=== PATIENT | male | born 1965 | race Caucasian/White ===

== ENCOUNTER 2024-04-03 13:20 | Emergency (ER) | payer OTHER, SELFPAY ==
[2024-04-03 13:36] VITALS: BP 176/87; PULSE 65; RESP 18; TEMP 36.6; O2SAT 99; BMI 22.4
--- NOTE | 2024-04-03 14:08 | ED_ITS ---
HPI - General Adult General Date Seen: 04/03/24 Chief complaint: Hip Injury/Pain Stated complaint: back pain Time Seen by Provider: 04/03/24 13:35 History of Present Illness HPI narrative: 58-year-old gentleman presenting to the ER today for hip injury and back pain. He is generally healthy except for he has a history of osteoarthritis and has had a previous right hip replacement done about [address] Levin. He says his hip was ?[id number]-rc-[id number]. ? He also says that he gets occasional bouts of ?sciatica? the tend to happen about once every fall or winter. He has never had any low back surgeries. 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 He works long hours at work. His has also been recovering from a recent surgery. She apparently had a foot surgery with hardware placement in January which subsequently developed a staph infection so she now had hardware removed and she is on IV antibiotics at home. She is able to ambulate herself but he does do a lot of extra household tasks to support her. He does not have to lift her or help her move around the house. Beginning last week, on around March 28 he started having pain affecting his right side of his lower lumbar spine. He does not recall any specific injury. No fall or slip on the ice. The pain tends to be worse when he flexes at the hip and bends his body into his an L shape and is better when he lays down flat and stretches out. Along with the pain which is now getting better for the past couple of days he notes a little bit of numbness affecting the lateral side of his right hip and buttock. The numbness does not radiate down his leg to his thigh or calf or foot. No pain or numbness radiating down his leg at all. No weakness in his leg. No left-sided symptoms. He been having pain all week long but finally started taking ibuprofen on Thursday. He notes that he has been taking about 600 mg every 4 hours. Beginning about , before he started the ibuprofen, he has also developed just poor appetite. He says food just does not smell good to him. He is not nauseous. No vomiting. No abdominal pain. He is not having any diarrhea and in fact had a normal formed brown bowel movement. He is not sure why he is still putting because he has not eaten since Thursday. Related Data Home Medications ?Medication ?Instructions ?Recorded ?Confirmed glucosamine sulfate 500 mg tablet 500 mg PO QDAY 03/29/24 03/29/24 (Cidatrine (glucosamine)) omega 5-duv-oky-fish oil 300 1 cap PO QDAY 03/29/24 03/29/24 mg-1,000 mg capsule (Fish Oil) Allergies Allergy/AdvReac Type Severity Reaction Status Date / Time No Known Drug Allergies Allergy Verified 04/03/24 13:35 [facility] Social History Smoking Status: Never smoker Do you use any of these nicotine containing products: None Second hand tobacco smoke exposure: No How often do you have a drink containing alcohol: 2-4 times a month How many standard drinks containing alcohol do you have on a typical day: 1 or 2 How often do you have six or more drinks on one occasion: Never AUDIT-C Alcohol total score: 2 Non-prescribed substance use: denies use service: No Exam Narrative: Exam Narrative: Constitutional: Appears well-developed and well-nourished. Alert. Conversant, and speaks very rapidly and jumps quickly from topic to topic. He gives very detailed long when descriptions of previous events, even to surgery from years a go. Non toxic. HENT: Head: Atraumatic. Nose: Nose normal. Mouth/Throat: Oral mucosa is clear and moist. no trismus. Pharynx normal. Tonsils symmetric. No tonsillar enlargement, erythema, or exudate. Eyes: Conjunctivae normal. EOM normal. Pupils equal, round, and reactive to light. No scleral icterus. Neck: Normal range of motion. Neck supple. No tracheal deviation present. Cardiovascular: Normal rate, regular rhythm. No gallop. No friction rub. No murmur heard. Symmetric radial artery pulses Pulmonary/Chest: Effort normal. No stridor. No respiratory distress. No wheezes. No rales. No rhonchi . No tenderness. Abdominal: Soft. Bowel sounds normal. No distension. No mass. No tenderness. No rebound. No guarding. No CVA tenderness Musculoskeletal: He is able to sit up/rollover for back exam. Normal inspection. No midline tenderness of the thoracic or lumbar spine. No CVA tenderness. No bruising. No redness. No rash. He is not having any tenderness at all this point but is endorsing an area of numbness on his right lateral hip. He is able to his viejas 8 with his thumb and fingers and extends from the right buttock up toward the anterior superior iliac spine on the right side and down toward the greater trochanter. RUE: Normal range of motion. No tenderness. No deformity LUE: Normal range of motion. No tenderness. No deformity RLE: Normal range of motion. No edema. No tenderness. No deformity LLE: Normal range of motion. No edema. No tenderness. No deformity Neurological: Alert and oriented to person, place, and time. Normal strength. CN II-VII intact. No sensory deficit. GCS eye subscore is 4. GCS verbal subscore is 5. GCS motor subscore is 6. Normal coordination Sensory: Normal light touch sensation bilaterally on the anteromedial thigh (L3), medial malleolus (L4), dorsal first web space (L5), lateral malleolus (S1). Strength: 5/5 strength hip flexors (L3) on the rig ht and left 5/5 strength in the quadriceps (L4) on t he right and left 5/5 strength in the tibialis anterior 5/5 strength in the EHL (L5) on the righ t and left 5/5 strength in the gastrocnemius (S1) o n the right and left 5/5 strength in the hamstring on the rig ht and left Negative straight leg raise bilaterally. Skin: Skin is warm and dry. No rash noted. No pallor. Normal capillary refill. Psychiatric: Normal mood. Normal affect. Const: Vital Signs, click to edit/add: Vital Signs - 24 hr 04/03/24 13:36 Temperature 98 F Pulse Rate [Pulse Oximeter] 65 Respiratory Rate 18 Blood Pressure [Le ft Upper Arm] 176/87 H Pulse Oximetry 99 Oxygen Delivery Me thod Room Air Course Vital Signs Vital signs: Initial Vital Signs Temperature 98 F 04/03/24 13:36 Temperature Source Temporal Artery Scan 04/03/24 13:36 Pulse Rate 65 04/03/24 13:36 Pulse Rhythm Regular 04/03/24 13:36 Respiratory Rate 18 04/03/24 13:36 Blood Pressure 176/87 H 04/03/24 13:36 Blood Pressure Mean 116 H 04/03/24 13:36 Blood Pressure Position High-Fowlers 04/03/24 13:36 Pulse Oximetry 99 04/03/24 13:36 Oxygen Delivery Method Room Air 04/03/24 13:36 Vital Signs Temperature 98 F 04/03/24 13:36 Pulse Rate 65 04/03/24 13:36 Respiratory Rate 18 04/03/24 13:36 Blood Pressure 176/87 H 04/03/24 13:36 Pulse Oximetry 99 04/03/24 13:36 Oxygen Delivery Method Room Air 04/03/24 13:36 Temperature 98 F 04/03/24 13:36 Pulse Rate 60 04/03/24 17:15 Respiratory Rate 18 04/03/24 13:36 Blood Pressure 136/99 H 04/03/24 17:01 Pulse Oximetry 98 04/03/24 17:15 Oxygen Delivery Method Room Air 04/03/24 13:36 Medical Decision Making MDM Narrative Medical decision making narrative: This patient presented with an episode of right-sided lower back pain that began several days ago which is now still present but improving and associated with a focal area of numbness on the right lateral hip. In addition to this he is also concerned because he has had anorexia without nausea or vomiting and without abdominal pain beginning a few days ago. Broad differential considered. In terms of his low back pain, The patient did not sustain any trauma, therefore x-rays are not necessary due to the low likelihood of fracture or subluxation. The patient has not had a fever, saddle/perineal anesthesia, bilateral foot numbness, or bowel or bladder dysfunction. There is no clinical evidence of cauda equina syndrome, discitis, spinal/epidural space hematoma or epidural abscess. The neurological exam is normal in his legs, but with a focal area of numbness on the right hip, consider a possible lumbar radiculopathy, possibly affecting the L1 dermatome. MRI not available here in the ER on the weekend. At this point no immediate surgical emergency. Patient will need close outpatient follow-up with primary care to consider possible MRI. Patient declines any pain meds for his back here in the ER. He also notes anorexia and poor appetite for the past few days. Differential for this is broad. He is not nauseous, vomiting or having diarrhea. He has not have a abdominal pain or tenderness. Laboratory workup shows normal white count. Hemoglobin 13.2. LFTs and lipase are normal. No evidence for any cholecystitis. Urinalysis negative for infection. CT scan is obtained with to evaluate for possible intra-abdominal pathology such as gastroenteritis, obstruction, colitis, diverticulitis, appendicitis causing his anorexia. CT shows no acute surgical pathology. It does show nonspecific fluid in the small bowel, possibly enteritis. Also possible constipation. The patient will be discharged with pain medications to use as directed. Ice or heat to the back and stretching exercises. No heavy lifting, bending or twisting. Return if increasing pain, numbness, weakness, or bowel or bladder dysfunction. The patient was advised to schedule follow-up with their primary doctor within 2-3 days to re-assess symptoms. Return precautions reviewed and questions answered. Lab Data Labs: Lab Results 04/03/24 Range/Units 14:50 WBC 5.39 (4.50-11.00) K/uL RBC 4.55 (4.30-5.90) m/uL Hgb 13.2 L (13.5-17.5) gm/dL Hct 39.7 (37.0-53.0) % MCV 87 (80-100) fL MCH 29 (26-34) pg MCHC 33 (32-36) gm/dL RDW Coeff of Lucia 12.7 (11.5-15.5) % Plt Count 199 (140-440) K/uL Neut % (Auto) 64.5 (42.0-72.0) % Lymph % (Auto) 25.4 (20-44) % Starr % (Auto) 8.0 (0.0-11.0) % Eos % (Auto) 0.7 (0.0-7.0) % Baso % (Auto) 0.7 (0.0-3.0) % Neut # (Auto) 3.47 (1.7-7.0) K/uL Lymph # (Auto) 1.37 (0.90-2.90) K/uL Starr # (Auto) 0.40 (0.00-0.90) K/UL Eos # (Auto) 0.04 (0.00-0.50) K/uL Baso # (Auto) 0.04 (0.00-0.30) K/uL Abs Immat Gran (auto) 0.04 (0.00-0.30) K/uL Imm/Tot Granulo (auto) 0.7 % Sodium 136 (135-149) mmol/L Potassium 3.7 (3.6-5.1) mmol/L Chloride 105 (96-114) mmol/L Carbon Dioxide 26 (20-32) mmol/L Anion Gap 5 L (7-15) mEq/L BUN 15 (7-30) mg/dL Creatinine 0.8 (0.5-1.5) mg/dL Estimated Creat Clear 101.96 Estimated GFR 103 ml/min Glucose 89 (60-115) mg/dL Calcium 8.8 (8.4-10.6) mg/dL Total Bilirubin 0.5 (0.1-1.5) mg/dL AST 18 (12-35) U/L ALT 16 (4-50) U/L Alkaline Phosphatase 53 (40-150) U/L Total Protein 6.2 (6.0-8.3) g/dL Albumin 3.9 (3.3-5.0) g/dL Lipase 86 (23-300) U/L Urine Color Yellow (Yellow) Urine Appearance Clear (Clear) Urine pH 6.0 (5.0-8.5) Ur Specific [place] 1.025 (1.000-1.030) Urine Protein Negative (Negative) Urine Glucose (UA) Negative (Negative) Urine Ketones 1+ A (Negative) Urine Blood Negative (Negative) Urine Nitrite Negative (Negative) Urine Bilirubin Negative (Negative) Urine Urobilinogen 0.2 (0.2-1.0) Ur Leukocyte Esterase Negative (Negative) Urine RBC 0-2 (0-2) Urine WBC 2-5 (0-5) Ur Squamous Epith Cells None (None-Few) Urine Bacteria None (None) Imaging Data CT scan - abdomen: Attestation: I have reviewed the pertinent imaging results. Radiologist's impression: Impression: 1. Minimal fluid seen within the central small bowel. Findings could represent mild enteritis changes. Moderate stool seen throughout the colon with distal colonic diverticulosis. 2. Normal appendix. Postoperative changes of the right hip status post right hip arthroplasty without evidence of displaced fracture or hardware failure. Discharge Plan Discharge Clinical Impression: Low back pain, Paresthesia Patient Disposition: Home, Self-Care Condition: Stable Instructions: Acute Low Back Pain (ED), Paresthesia (ED) Additional Instructions: As we discussed, I suspect that your low back pain is probably a muscle spasm on the right side of your lumbar paraspinous muscles. The numbness in your right hip might be due to a pinched nerve from a bulging disc in your low back (possibly lumbar 1 nerve root). Please follow-up with your regular doctor within 1-2 days for a recheck. If necessary, your regular doctor can order an MRI of your low back or your hip for further evaluation. To treat your pain you can use Tylenol 1000 mg every 6 hours or ibuprofen 600 mg every 6 hours. Use the prescription muscle relaxer, Flexeril, as needed for muscle spasm. Be careful Flexeril because it can cause dizziness, drowsiness, and can be addictive. Do not drive or operate machinery for 4 hours after taking Flexeril. Please come back to the ER right away if you have worsening symptoms, new numbness or weakness in your leg, trouble with bowel or bladder function, high fever, or any problems. Prescriptions: No Action glucosamine sulfate [Cidatrine (glucosamine)] 500 mg tablet 500 mg PO QDAY Rx Instructions: administer with a meal omega 6-zvf-yiz-fish oil [Fish Oil] 300-1,000 mg capsule 1 cap PO QDAY Follow Up/Referrals: Viktor Chinchilla MD [Primary Care Provider] - Stand Alone Forms: MyHealth Info Instructions
--- NOTE | 2024-04-03 14:34 | CRLHL7_ITS ---
For Patients: As a result of the Century Cures Act, medical imaging exams and procedure reports are released immediately into your electronic medical record. You may view this report before your referring provider. If you have questions, please contact your health care provider. Indication: Anorexia, weight loss, right flank pain and right hip numbness Technique: Volumetric multidetector CT images of the abdomen and pelvis were obtained after the administration of intravenous contrast. 78 cc Isovue 370 low osmolar intravenous contrast Comparison: None available. Findings: The lung bases are clear. Cystic changes of the liver are appreciated otherwise, no evidence of focal abnormality. The portal vein is patent. The gallbladder is unremarkable without evidence of radiopaque calculus. There is no significant common biliary ductal dilatation or abrupt cut off. The spleen is normal in enhancement and size. The stomach and duodenum are grossly unremarkable. The pancreas is normal in enhancement without significant atrophy. The adrenal glands are unremarkable. The kidneys demonstrate preserved corticomedullary differentiation without evidence of obstructive uropathy. There is moderate stool seen throughout the colon with distal colonic diverticulosis. There is minimal fluid within the central small bowel. The appendix is unremarkable. There is no significant mesenteric, retroperitoneal, or pelvic sidewall lymph nodes. The aorta is nonaneurysmal. There is no significant atherosclerotic disease appreciated. Evaluation of the central pelvis is mildly limited due to beam hardening artifact from right hip arthroplasty. Right hip arthroplasty is grossly intact. There is no free fluid or free air. The anterior abdominal wall is intact without significant hernias. The lumbar vertebral body heights are grossly maintained with moderate multilevel degenerative disc disease. There is minimal anterolisthesis of L5 on S1. 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 Impression: 1. Minimal fluid seen within the central small bowel. Findings could represent mild enteritis changes. Moderate stool seen throughout the colon with distal colonic diverticulosis. 2. Normal appendix. Postoperative changes of the right hip status post right hip arthroplasty without evidence of displaced fracture or hardware failure. Please note that all CT scans at this facility use dose modulation, iterative reconstruction, and/or weight-based dosing when appropriate to reduce radiation dose to as low as reasonably achievable. Dictated by Fantasma Fatima MD @ 04/03/2024 4:53:20 PM (Electronically Signed)
[2024-04-03 14:57] LABS: Appearance Urine Clear (Clear); Basophils Absolute Auto 0.04 K/uL (0.00-0.30); Basophils Percent Auto 0.7 % (0.0-3.0); Bilirubin Urine Negative (Negative); Blood Urine Negative (Negative); Color Urine Yellow (Yellow); Eosinophils Absolute Auto 0.04 K/uL (0.00-0.50); Eosinophils Percent Auto 0.7 % (0.0-7.0); Glucose Urine Negative (Negative); Hematocrit 39.7 % (37.0-53.0); Hemoglobin* 13.2 gm/dL (13.5-17.5); Immature Granulocytes Abs Auto 0.04 K/uL (0.00-0.30); Immature Granulocytes Pct Auto 0.7 %; Ketones Urine 1+ (Negative); Leukocyte Esterase Urine Negative (Negative); Lymphocytes Absolute Auto 1.37 K/uL (0.90-2.90); Lymphocytes Percent Auto 25.4 % (20-44); Mean Corpuscular HGB Conc 33 gm/dL (32-36); Mean Corpuscular Hemoglobin 29 pg (26-34); Mean Corpuscular Volume 87 fL (80-100); Neutrophils Absolute Auto 3.47 K/uL (1.7-7.0); Neutrophils Percent Auto 64.5 % (42.0-72.0); Nitrite Urine Negative (Negative); Platelet Count* 199 K/uL (140-440); Protein Urine Negative (Negative); RDW Coefficient of Variation % 12.7 % (11.5-15.5); Red Blood Count 4.55 m/uL (4.30-5.90); Specific Gravity Urine 1.025 (1.000-1.030); Urobilinogen Urine 0.2 (0.2-1.0); White Blood Count* 5.39 K/uL (4.50-11.00)
[2024-04-03 15:02] LABS: Slide Review Reflex No
[2024-04-03 15:09] LABS: Albumin* 3.9 g/dL (3.3-5.0); Chloride* 105 mmol/L (96-114)
[2024-04-03 15:10] LABS: Potassium* 3.7 mmol/L (3.6-5.1); Sodium* 136 mmol/L (135-149)
[2024-04-03 15:12] LABS: Alkaline Phosphatase* 53 U/L (40-150); Anion Gap 5 mEq/L (7-15); Aspartate Amino Transferase* 18 U/L (12-35); Bilirubin Total* 0.5 mg/dL (0.1-1.5); Blood Urea Nitrogen* 15 mg/dL (7-30); Carbon Dioxide* 26 mmol/L (20-32); Creatinine* 0.8 mg/dL (0.5-1.5); Est. Creatinine Clearance* 101.96; Estimated Glomerular Filt Rate 103 ml/min; Total Protein* 6.2 g/dL (6.0-8.3)
[2024-04-03 15:13] LABS: Alanine Aminotransferase* 16 U/L (4-50); Calcium* 8.8 mg/dL (8.4-10.6); Glucose* 89 mg/dL (60-115); Lipase* 86 U/L (23-300)
[2024-04-03 15:15] LABS: RBC Urine 0-2 (0-2)
[2024-04-03 16:39] VITALS: PULSE 58; O2SAT 100
[2024-04-03 16:45] VITALS: PULSE 61; O2SAT 99
[2024-04-03 17:00] VITALS: PULSE 57; O2SAT 98
[2024-04-03 17:01] VITALS: BP 136/99; PULSE 75; O2SAT 99
[2024-04-03 17:15] VITALS: PULSE 60; O2SAT 98
== END 2024-04-03 17:46 | disposition home or self-care (01) ==
PROVIDERS: Emergency Provider Emergency Medicine; PCP Family Medicine
DX: M54.50 Low back pain, unspecified (principal); R20.2 Paresthesia of skin
CPT/HCPCS: 36415; 74177; 80053; 81001; 83690; 85025; 99284; 99285; Q9967